=== PATIENT | female | born 1990 | race Two or more races ===

== ENCOUNTER 2020-11-03 10:40 | Outpatient (CLI) | payer OTHER ==
[~2020-11-03] VITALS: Ht 162.6 cm; Wt 81.6 kg
[2020-11-03 11:14] LABS: MICROSCOPIC INDICATED
[2020-11-03] MEDS ORDERED: NITR100C57 PO (12:08)
== END 2020-11-03 12:11 | disposition home or self-care (01) ==
LOC: LDOP 10:40
PROVIDERS: ATTEND Obstetrics & Gynecology
DX: O26.893 Other specified pregnancy related conditions, third trimester (principal); R10.9 Unspecified abdominal pain; Z3A.35 35 weeks gestation of pregnancy
CPT/HCPCS: 59025; 81001; 87086

== ENCOUNTER 2020-12-01 12:12 | Outpatient (CLI) | payer OTHER ==
[~2020-12-01 12:12] MED LIST: NITR100C57 PO
[2020-12-01 12:33] LABS: MICROSCOPIC INDICATED
[2020-12-01 12:44] LABS: BASOPHILS % (AUTO) 0 % (0-1); EOSINOPHILS % (AUTO) 2 % (1-7); LYMPHOCYTES % (AUTO) 14 % (22-44); MEAN CORPUSCULAR HEMOGLOBIN 29.4 pg (27.0-34.8); MEAN CORPUSCULAR HGB CONC 33.5 g/dL (32.4-35.8); MEAN PLATELET VOLUME 7.8 fL (7.4-10.4); MONOCYTES % (AUTO) 6 % (2-9); NEUTROPHILS % (AUTO) 77 % (42-75); PLATELET COUNT 272 x10^3/uL (130-400); RED BLOOD COUNT 4.18 x10^6/uL (3.82-5.3); RED CELL DISTRIBUTION WIDTH 13.3 % (9.6-15.2)
[2020-12-01 12:55] LABS: ALANINE AMINOTRANSFERASE 16 U/L (12-78); ALBUMIN 2.7 g/dL (3.4-5.0); ANION GAP 5 mmol/L (5-15); BILIRUBIN, DIRECT 0.1 mg/dL (0.1-0.2); CHLORIDE 105 mmol/L (98-107); CREATININE 0.45 mg/dL (0.55-1.02)
[2020-12-01 12:57] LABS: ALKALINE PHOSPHATASE 168 U/L (45-117); BILIRUBIN,TOTAL 0.2 mg/dL (0.2-1.0); TOTAL PROTEIN 6.7 g/dL (6.4-8.2)
== END 2020-12-01 13:20 | disposition home or self-care (01) ==
LOC: LDOP 12:12
PROVIDERS: ATTEND Obstetrics & Gynecology
DX: O16.3 Unspecified maternal hypertension, third trimester (principal); Z3A.39 39 weeks gestation of pregnancy
CPT/HCPCS: 36415; 59025; 80053; 81001; 82248; 82570; 84156; 84550; 85025

== ENCOUNTER 2020-12-08 12:14 | Inpatient (IN) | payer OTHER ==
[~2020-12-08] VITALS: Ht 165.1 cm; Wt 84.0 kg
[2020-12-08] MEDS: LACTATED RINGERS 1,000 ML IV SCH (21:17)
[2020-12-08 21:55] LABS: BASOPHILS % (AUTO) 0 % (0-1); EOSINOPHILS % (AUTO) 2 % (1-7); LYMPHOCYTES % (AUTO) 20 % (22-44); MEAN CORPUSCULAR HEMOGLOBIN 30.5 pg (27.0-34.8); MEAN CORPUSCULAR HGB CONC 34.7 g/dL (32.4-35.8); MEAN PLATELET VOLUME 7.9 fL (7.4-10.4); MONOCYTES % (AUTO) 7 % (2-9); NEUTROPHILS % (AUTO) 71 % (42-75); PLATELET COUNT 261 x10^3/uL (130-400); RED BLOOD COUNT 3.95 x10^6/uL (3.82-5.3); RED CELL DISTRIBUTION WIDTH 13.4 % (9.6-15.2)
[2020-12-08] MEDS ORDERED: TERBUTALINE 1 MG/ML, 1ML IVPush PRN (22:00)
[2020-12-08] MEDS ORDERED: OXYTOCIN 30U/ 0.9% NaCL 500ML 500 ML IV ONE (22:00)
[2020-12-08] MEDS ORDERED: FENTANYL PF 100 MCG/2ML IV PRN (22:00)
[2020-12-08] MEDS ORDERED: ONDANSETRON 2MG/ML, 2ML IVPush PRN (22:00)
[2020-12-08] MEDS ORDERED: MISOPROSTOL 25 MCG TABLET VG PRN (22:00)
[2020-12-08] MEDS ORDERED: PENICILLIN GK 5,000,000 UNITS in DEXTROSE 5% 100 ML IVPB ONE (22:00)
[2020-12-08] MEDS ORDERED: TERBUTALINE 1 MG/ML, 1ML SQ PRN (22:00)
[2020-12-08] MEDS ORDERED: D5%-LACTATED RINGERS 1,000 ML IV SCH (22:00)
[2020-12-08] MEDS ORDERED: FENTANYL PF 100 MCG/2ML IVPush PRN (22:00)
[2020-12-08] MEDS ORDERED: MISOPROSTOL 200 MCG TABLET ONE (22:20)
[2020-12-08] MEDS ORDERED: LIDOCAINE 1%, 20ML ONE (22:20)
[2020-12-08] MEDS ORDERED: NEWBORN KIT ONE ×2 (22:21→23:12)
[2020-12-08] MEDS: OXYTOCIN 30U/ 0.9% NaCL 500ML 500 ML IV PRN (23:50)
[2020-12-09] MEDS ORDERED: PREN1TAB60 PO (02:13)
[2020-12-09] MEDS: PENICILLIN GK 2,500,000 UNITS in DEXTROSE 5% 100 ML IVPB SCH ×6 (02:30→22:51)
[2020-12-09] MEDS ORDERED: ACETAMINOPHEN 325 MG TABLET ONE (09:34)
[2020-12-09] MEDS: ACETAMINOPHEN 325 MG TABLET PO PRN (09:39)
[2020-12-09] MEDS ORDERED: FENTANYL/BUPIV./NS/PF 250 ML EPIDCONT ONE (13:15)
[2020-12-09] MEDS: LACTATED RINGERS 1,000 ML IV SCH ×3 (13:15→23:51)
[2020-12-09] MEDS ORDERED: EPHEDRINE 50 MG/ML, 1ML IVPush PRN ×2 (14:00→18:00)
[2020-12-09] MEDS ORDERED: NALOXONE 0.4 MG/ML, 1ML IVPush PRN ×2 (14:00→18:00)
[2020-12-09] MEDS ORDERED: LACTATED RINGERS 1,000 ML IV SCH ×2 (14:00→18:00)
[2020-12-09] MEDS ORDERED: LACTATED RINGERS 1,000 ML IVBOLUS PRN ×2 (14:00→18:00)
[2020-12-09] MEDS ORDERED: FENTANYL/BUPIV./NS/PF 250 ML EPIDCONT SCH ×2 (14:00→18:00)
[2020-12-09] MEDS ORDERED: METOCLOPRAMIDE 5 MG/ML, 2ML ONE (21:38)
[2020-12-09] MEDS ORDERED: SODIUM CITRATE/CITRIC ACID 15 ML UDC ONE (21:38)
[2020-12-09] MEDS: OXYTOCIN 30U/ 0.9% NaCL 500ML 500 ML IV PRN (22:29)
[2020-12-10] MEDS: LACTATED RINGERS 1,000 ML IV SCH ×5 (00:31→23:30)
[2020-12-10] MEDS ORDERED: LIDOCAINE-MPF 2% ,5ML ONE (01:27)
[2020-12-10] MEDS ORDERED: OXYTOCIN 10 UNITS/ML, 1ML ONE (01:27)
[2020-12-10] MEDS ORDERED: EPHEDRINE 50 MG/ML, 1ML ONE (01:27)
[2020-12-10] MEDS ORDERED: CEFAZOLIN 1,000 MG ONE (01:27)
[2020-12-10] MEDS ORDERED: FENTANYL PF 100 MCG/2ML ONE (02:15)
[2020-12-10] MEDS ORDERED: morphine SULFATE 10 MG/ML, 1ML ONE (02:16)
[2020-12-10] MEDS ORDERED: METOCLOPRAMIDE 5 MG/ML, 2ML IV ONE (02:30)
[2020-12-10] MEDS ORDERED: LACTATED RINGERS 1,000 ML IVBOLUS ONE (02:30)
[2020-12-10] MEDS ORDERED: AZITHROMYCIN 500 MG in SODIUM CHLORIDE 0.9% 250 ML IV ONE (02:30)
[2020-12-10] MEDS ORDERED: SODIUM CITRATE/CITRIC ACID 30 ML UDC PO ONE (02:30)
[2020-12-10] MEDS ORDERED: KETOROLAC 30 MG/1 ML ONE (02:52)
[2020-12-10] MEDS ORDERED: ACETAMINOPHEN 325 MG TABLET PO PRN (03:30)
[2020-12-10] MEDS ORDERED: CALCIUM CARBONATE 500 MG TAB.CHEW PO PRN (03:30)
[2020-12-10] MEDS ORDERED: IBUPROFEN 800 MG TABLET PO PRN (03:30)
[2020-12-10] MEDS ORDERED: ONDANSETRON 2MG/ML, 2ML IV PRN (03:30)
[2020-12-10] MEDS ORDERED: METOCLOPRAMIDE 5 MG/ML, 2ML IV PRN (03:30)
[2020-12-10] MEDS: KETOROLAC 30 MG/1 ML IV SCH ×4 (03:30→21:50)
[2020-12-10] MEDS: OXYTOCIN 30U/ 0.9% NaCL 500ML 500 ML IV SCH ×3 (03:30→23:30)
[2020-12-10] MEDS ORDERED: DIPH,PERTUSS(ACELL),TET VAC/PF NC IM-VACC PRN (03:30)
[2020-12-10] MEDS ORDERED: METHYLERGONOVINE 0.2 MG/ML IM PRN (03:30)
[2020-12-10] MEDS ORDERED: MISOPROSTOL 200 MCG TABLET SL PRN (03:30)
[2020-12-10] MEDS ORDERED: OXYcodone IR 5MG TABLET PO PRN (03:30)
[2020-12-10] MEDS ORDERED: SIMETHICONE 80 MG CHEW TAB PO PRN (03:30)
[2020-12-10] MEDS ORDERED: OXYcodone 5 MG/5 ML ORAL.SOL UDC ONE (04:29)
[2020-12-10] MEDS ORDERED: OXYcodone 5 MG/5 ML ORAL.SOL UDC PO ONE (04:30)
[2020-12-10 05:00] VITALS: BP 106/70
[2020-12-10] MEDS: DOCUSATE 100 MG CAPSULE PO SCH ×2 (08:22→21:50)
[2020-12-10] MEDS: PRENATAL VIT/IRON/FA 1 EACH TABLET PO SCH (08:22)
[2020-12-10 08:45] VITALS: BP 104/66
[2020-12-10] MEDS: ACETAMINOPHEN 325 MG TABLET PO PRN (10:15)
[2020-12-10] MEDS: MORPHINE SULFATE 4 MG/ML, 1ML IVPush PRN ×2 (10:40→14:12)
[2020-12-10 11:13] LABS: BASOPHILS % (AUTO) 0 % (0-1); EOSINOPHILS % (AUTO) 0 % (1-7); LYMPHOCYTES % (AUTO) 13 % (22-44); MEAN CORPUSCULAR HEMOGLOBIN 29.7 pg (27.0-34.8); MEAN CORPUSCULAR HGB CONC 33.7 g/dL (32.4-35.8); MEAN PLATELET VOLUME 8.1 fL (7.4-10.4); MONOCYTES % (AUTO) 6 % (2-9); NEUTROPHILS % (AUTO) 80 % (42-75); PLATELET COUNT 200 x10^3/uL (130-400); RED BLOOD COUNT 3.29 x10^6/uL (3.82-5.3); RED CELL DISTRIBUTION WIDTH 13.5 % (9.6-15.2)
[2020-12-10] MEDS: OXYcodone IR 5MG TABLET PO PRN ×3 (12:28→21:51)
[2020-12-10 12:29] VITALS: BP 101/65
[2020-12-10 16:40] VITALS: BP 104/67
[2020-12-10 21:00] VITALS: BP 107/72
[2020-12-11] VITALS: BP 103/68
[2020-12-11] MEDS: OXYcodone IR 5MG TABLET PO PRN ×4 (02:29→22:24)
[2020-12-11] MEDS: LACTATED RINGERS 1,000 ML IV SCH ×5 (03:30→19:30)
[2020-12-11 04:30] VITALS: BP 101/67
[2020-12-11] MEDS ORDERED: IBUPROFEN 600 MG TABLET ONE (04:34)
[2020-12-11] MEDS: IBUPROFEN 600 MG TABLET PO PRN ×3 (05:38→18:16)
[2020-12-11] MEDS: DOCUSATE 100 MG CAPSULE PO SCH ×2 (08:32→22:24)
[2020-12-11] MEDS: PRENATAL VIT/IRON/FA 1 EACH TABLET PO SCH (08:32)
[2020-12-11 08:52] VITALS: BP 103/70
[2020-12-11] MEDS: OXYTOCIN 30U/ 0.9% NaCL 500ML 500 ML IV SCH ×2 (09:13→19:30)
[2020-12-11 21:30] VITALS: BP 115/72
[2020-12-12] MEDS ORDERED: OXYcodone 5 MG/5 ML ORAL.SOL UDC ONE (02:40)
[2020-12-12] MEDS: OXYcodone IR 5MG TABLET PO PRN ×4 (02:45→15:59)
[2020-12-12] MEDS: IBUPROFEN 600 MG TABLET PO PRN ×2 (02:45→10:08)
[2020-12-12] MEDS: LACTATED RINGERS 1,000 ML IV SCH ×4 (03:37→15:30)
[2020-12-12] MEDS: OXYTOCIN 30U/ 0.9% NaCL 500ML 500 ML IV SCH ×2 (05:32→15:30)
[2020-12-12 07:43] VITALS: BP 120/72
[2020-12-12] MEDS: DOCUSATE 100 MG CAPSULE PO SCH (07:57)
[2020-12-12] MEDS: PRENATAL VIT/IRON/FA 1 EACH TABLET PO SCH (07:57)
== END 2020-12-12 17:35 | disposition home or self-care (01) | DRG 787 ==
LOC: LDIP 20:15 → 2NW 12-10 04:50
PROVIDERS: ADMIT Obstetrics & Gynecology; ATTEND Obstetrics & Gynecology
PROC: 10D00Z1 Extraction of Products of Conception, Low, Open Approach (ICD-10-PCS; principal; 2020-12-10)
DX: O32.8XX0 Maternal care for other malpresentation of fetus, not applicable or unspecified (principal); O23.43 Unspecified infection of urinary tract in pregnancy, third trimester; O63.9 Long labor, unspecified; O69.81X0 Labor and delivery complicated by cord around neck, without compression, not applicable or unspecified; O99.02 Anemia complicating childbirth; O99.824 Streptococcus B carrier state complicating childbirth; Z37.0 Single live birth; O62.0 Primary inadequate contractions; O34.13 Maternal care for benign tumor of corpus uteri, third trimester; D25.2 Subserosal leiomyoma of uterus; Z3A.40 40 weeks gestation of pregnancy; Z20.822 Contact with and (suspected) exposure to COVID-19
CPT/HCPCS: 36415; J3490; 85025; 86592; 86850; 86900; 87635; 90715; G0378; J0690; J1885; J2405; J2540; J3010; J2270; J2590; J2765; J7120